=== PATIENT | male | born 2000 | race Caucasian/White ===

== ENCOUNTER 2021-08-26 13:26 | Emergency (ER) | payer BC ==
[~2021-08-26 13:26] MED LIST: Adenosine 12 MG/4 ML SDV ONE; Adenosine 6 MG/2 ML SDV ONE
[2021-08-26] MEDS: Adenosine 6 MG/2 ML SDV IVPUSH ONE (13:30)
== END 2021-08-26 18:15 | disposition home or self-care (01) ==
LOC: JD.ED 13:26
DX: I47.1 Supraventricular tachycardia (principal); I45.6 Pre-excitation syndrome; R94.31 Abnormal electrocardiogram [ECG] [EKG]; Z72.0 Tobacco use
CPT/HCPCS: 36415; 80053; 80306; 83735; 84443; 84484; 85025; 93005; 96374; 99285; J0153

== ENCOUNTER 2021-09-26 09:16 | Emergency (ER) | payer BC | END 2021-09-26 10:36 | disposition home or self-care (01) | LOC: JD.ED 09:16 | DX: I45.6 Pre-excitation syndrome (principal) | CPT/HCPCS: 93005; 93010; 99284; 99285-25 ==